=== PATIENT | male | born 1975 | race Two or more races ===

== ENCOUNTER 2023-12-19 11:56 | Inpatient (IN) | payer OTHER ==
[~2023-12-19] VITALS: Ht 170.2 cm; Wt 63.5 kg
[2023-12-19] MEDS ORDERED: FAMOtidine 10 MG/ML (4ML VIAL) IV STA (13:56)
[2023-12-19] MEDS ORDERED: THIAMINE HCL 100 MG/ML 2 ML VIAL IM STA (13:59)
[2023-12-19] MEDS ORDERED: 0.9 % SODIUM CHLORIDE 1,000 ML IV SCH (14:00)
[2023-12-19 14:44] LABS: HEMATOCRIT 30.2 % (39.0-48.0); HEMOGLOBIN 10.9 g/dL (13-16.00); MEAN CELL VOLUME 105.2 fL (80.0-100.00); MEAN CORPUSCULAR HGB CONC 36.1 g/dl (32.0-36.0); RED BLOOD COUNT 2.88 M/uL (4.00-6.00); RED CELL DISTRIBUTION WIDTH 15.2 % (11.5-14.5)
[2023-12-19 14:46] LABS: PLATELET COUNT 89 K/uL (150-450)
[2023-12-19 15:05] LABS: INR 2.86
[2023-12-19 15:14] LABS: ALBUMIN 1.9 gm/dL (3.4-5.0); CREATININE SERUM 0.81 mg/dL (0.70-1.30); GFR 102.59; TOTAL PROTEIN 6.8 gm/dL (6.4-8.2)
[2023-12-19 15:16] LABS: BILIRUBIN,UNCONJUGATED 11.46 mg/dL (0.0-0.6)
[2023-12-19 15:24] LABS: BILIRUBIN TOTAL 21.82 mg/dL (0.3-1.2); POTASSIUM 1.66 mEq/L (3.5-5.1)
[2023-12-19 15:27] LABS: PARTIAL THROMBOPLASTIN TIME 59.7 SECONDS (22.0-34.0); PROTHROMBIN TIME 27.8 SECONDS (9.0-11.5)
[2023-12-19] MEDS ORDERED: POTASSIUM CHLORIDE 8 MEQ TABLET PO STA (15:32)
[2023-12-19] MEDS ORDERED: POTASSIUM CHLORIDE IN 0.9%NACL 40 MEQ/1,000 ML PIGGYBAG IV STA (15:33)
[2023-12-19 15:34] LABS: BILIRUBIN,CONJUGATED 10.36 mg/dL (0.0-0.2)
[2023-12-19 17:22] LABS: PH,URINE 6.5 (5.0-8.0); URINE APPEARANCE Turbid; URINE BACTERIA 11.3 uL (0.0-1933); URINE BILIRRUBIN Large (NEGATIVE); URINE BLOOD Negative; URINE COLOR Dark Yellow; URINE EPITHELIAL CELLS 16.5 uL (0.0-38.8); URINE GLUCOSE Negative (NEGATIVE); URINE KETONE Negative (NEGATIVE); URINE LEUKOCYTE Small; URINE NITRATE Positive; URINE PROTEIN Trace (NEGATIVE); URINE RBC 17.1 uL (0.0-20.8); URINE WBC 2.4 uL (0.0-23.2)
[2023-12-19] MEDS ORDERED: CEFTRIAXONE SODIUM 2,000 MG in 0.9 % SODIUM CHLORIDE 100 ML IV SCH (17:37)
[2023-12-19] MEDS ORDERED: LACTULOSE 10 G/15 ML ML PO SCH (17:37)
[2023-12-19] MEDS ORDERED: FUROsemide 20 MG/2 ML VIAL IV SCH (17:38)
[2023-12-19] MEDS ORDERED: ONDANSETRON HCL 4 MG in 0.9 % SODIUM CHLORIDE 50 ML IV PRN (17:45)
[2023-12-19] MEDS ORDERED: PANTOPRAZOLE SODIUM 40 MG/VIAL VIAL IV ONE (17:45)
[2023-12-19] MEDS ORDERED: CHLORDIAZEPOXIDE HCL 25 MG CAPSULE PO SCH (17:55)
[2023-12-19] MEDS ORDERED: PHYTONADIONE 10 MG/ML AMPUL SUBCUTANEO ONE (18:00)
[2023-12-19] MEDS ORDERED: OCTREOTIDE ACETATE 0.05MG/ML (50MCG/ML) AMPUL IV ONE (18:00)
[2023-12-19] MEDS ORDERED: FUROsemide 20 MG/2 ML VIAL ONE (18:49)
[2023-12-19] MEDS ORDERED: CEFTRIAXONE SODIUM 2,000 MG VIAL ONE (18:50)
[2023-12-19] MEDS ORDERED: OCTREOTIDE ACETATE 0.05MG/ML (50MCG/ML) AMPUL ONE (18:50)
[2023-12-19] MEDS ORDERED: LACTULOSE 20 G/30 ML BLIST.PACK ONE (18:51)
[2023-12-19 19:20] LABS: MAGNESIUM 1.7 mg/dL (1.8-2.4); PHOSPHOROUS 3.1 mg/dL (2.5-4.9)
[2023-12-19] MEDS ORDERED: LORazepam 1 MG TABLET PO SCH (19:39)
[2023-12-19] MEDS ORDERED: IPRATROPIUM BROMIDE 0.5 MG/2.5 ML AMPUL.NEB IH SCH (20:03)
[2023-12-19] MEDS ORDERED: ALBUMIN HUMAN-25 0.25GM/ML (50ML) VIAL IV SCH (20:07)
[2023-12-19] MEDS ORDERED: MAGNESIUM SULFATE 10,000 MG/20 ML VIAL IV ONE (20:15)
[2023-12-19] MEDS ORDERED: OCTREOTIDE ACETATE 1,250 MCG in 0.9 % SODIUM CHLORIDE 250 ML IV SCH (20:15)
[2023-12-19] MEDS ORDERED: PANTOPRAZOLE SODIUM 80 MG in 0.9 % SODIUM CHLORIDE 100 ML IV SCH (20:15)
[2023-12-19] MEDS ORDERED: POTASSIUM BICARBONATE/CIT AC 25 MEQ TABLET.EFF PO ONE (20:15)
[2023-12-19 21:09] LABS: ABG PH 7.569 (7.35-7.45); ABG PO2 82.7 mmHg (80-100); BASE EXCESS 6.9 mmol/l; BICARBONATE 28.6 mmol/l (23-25); SaO2 97.8 %; Tco2 29.6 mmol/l
[2023-12-19 21:58] LABS: ob POSITIVE (NEGATIVE)
[2023-12-19 22:00] LABS: COCAINE NEGATIVE (NEGATIVE); METHADONE NEGATIVE (NEGATIVE); OPIATES NEGATIVE (NEGATIVE); THC ( Cannabinoids) POSITIVE (NEGATIVE)
[2023-12-19 22:02] LABS: allen test SATISFACTORY; o2 21 %; puncture site RADIAL RIGHT
[2023-12-20] MEDS ORDERED: IPRATROPIUM BROMIDE 0.5 MG/2.5 ML AMPUL.NEB IH ONE (00:16)
[2023-12-20] MEDS ORDERED: POTASSIUM CHLORIDE IN WATER 100 ML IV SCH (01:00)
[2023-12-20] MEDS ORDERED: THIAMINE HCL 100 MG/ML 2 ML VIAL IV SCH (09:00)
[2023-12-20] MEDS ORDERED: CHOLESTYRAMINE/ASPARTAME LIGHT 4 G/PKT PACKET PO SCH (09:00)
[2023-12-20] MEDS ORDERED: SPIRONOLACTONE 50 MG TABLET PO SCH (11:25)
[2023-12-20] MEDS ORDERED: PHYTONADIONE 10 MG/ML AMPUL IV ONE (11:30)
[2023-12-20] MEDS ORDERED: PHYTONADIONE 10 MG/ML AMPUL IM ONE (11:30)
[2023-12-20] MEDS ORDERED: MAGNESIUM SULFATE IN WATER 50 ML IV ONE (11:30)
[2023-12-20] MEDS ORDERED: POTASSIUM CHLORIDE IN WATER 40 MEQ/100 ML PIGGYBAG IV SCH (12:00)
[2023-12-20] MEDS ORDERED: LACTULOSE 20 G/30 ML BLIST.PACK PO SCH (13:00)
[2023-12-20] MEDS ORDERED: ALBUMIN HUMAN-25 0.25GM/ML (50ML) VIAL IV SCH (17:00)
[2023-12-21 07:24] LABS: MEAN CELL VOLUME 107.2 fL (80.0-100.00); MEAN CORPUSCULAR HGB CONC 37.1 g/dl (32.0-36.0); RED BLOOD COUNT 2.16 M/uL (4.00-6.00); RED CELL DISTRIBUTION WIDTH 15.2 % (11.5-14.5)
[2023-12-21 07:40] LABS: CALCIUM 7.8 mg/dL (8.5-10.1); CREATININE SERUM 0.75 mg/dL (0.70-1.30); GFR 112.12; HEMATOCRIT 23.1 % (39.0-48.0); MEAN CORPUSCULAR HEMOGLOBIN 39.8 pg (27.00-32.0)
[2023-12-21 07:41] LABS: HEMOGLOBIN 8.6 g/dL (13-16.00); PLATELET COUNT 62 K/uL (150-450)
[2023-12-21 08:25] LABS: POTASSIUM 2.45 mEq/L (3.5-5.1)
[2023-12-21] MEDS ORDERED: MAGNESIUM SULFATE IN WATER 4 GM/100 ML PIGGYBACK IV ONE (11:17)
[2023-12-21] MEDS ORDERED: MAGNESIUM SULFATE IN WATER 50 ML IV NR (11:25)
[2023-12-21] MEDS ORDERED: POTASSIUM CHLORIDE IN WATER 40 MEQ/100 ML PIGGYBAG IV SCH (12:00)
[2023-12-21] MEDS ORDERED: OCTREOTIDE ACETATE 1,250 MCG in 0.9 % SODIUM CHLORIDE 250 ML IV SCH (13:00)
[2023-12-21] MEDS ORDERED: SODIUM CL 0.9% 250 ML IV.SOLN ONE (17:26)
[2023-12-22 06:56] LABS: INR 2.85
[2023-12-22 07:03] LABS: PROTHROMBIN TIME 27.7 SECONDS (9.0-11.5)
[2023-12-22 07:11] LABS: ALBUMIN 1.8 gm/dL (3.4-5.0); CALCIUM 7.8 mg/dL (8.5-10.1); CREATININE SERUM 0.9 mg/dL (0.70-1.30); GFR 90.84; GLOBULINA 3.1 G/DL (2.4-3.5); MAGNESIUM 2.2 mg/dL (1.8-2.4); TOTAL PROTEIN 4.9 gm/dL (6.4-8.2)
[2023-12-22 08:07] LABS: BILIRUBIN TOTAL 22.77 mg/dL (0.3-1.2); POTASSIUM 2.7 mEq/L (3.5-5.1)
[2023-12-22] MEDS ORDERED: SODIUM CL 0.9% 250 ML IV.SOLN ONE (09:25)
[2023-12-22] MEDS ORDERED: PHYTONADIONE 10 MG/ML AMPUL IV SCH (10:01)
[2023-12-22] MEDS ORDERED: POTASSIUM CHLORIDE IN WATER 40 MEQ/100 ML PIGGYBAG IV SCH (12:00)
[2023-12-23 05:14] LABS: MEAN CELL VOLUME 110.1 fL (80.0-100.00); MEAN CORPUSCULAR HGB CONC 36.9 g/dl (32.0-36.0); RED CELL DISTRIBUTION WIDTH 14.8 % (11.5-14.5)
[2023-12-23 05:17] LABS: MEAN CORPUSCULAR HEMOGLOBIN 40.9 pg (27.00-32.0)
[2023-12-23 05:18] LABS: HEMATOCRIT 23.2 % (39.0-48.0)
[2023-12-23 05:19] LABS: PLATELET COUNT 60 K/uL (150-450)
[2023-12-23] MEDS ORDERED: PANTOPRAZOLE SODIUM 40 MG/VIAL VIAL IV SCH (09:00)
[2023-12-23 09:50] LABS: HEMOGLOBIN 8.6 g/dL (13-16.00)
[2023-12-24 18:10] LABS: HEMATOCRIT 24.6 % (39.0-48.0); HEMOGLOBIN 9.1 g/dL (13-16.00); MEAN CELL VOLUME 109.1 fL (80.0-100.00); MEAN CORPUSCULAR HEMOGLOBIN 40.4 pg (27.00-32.0); RED BLOOD COUNT 2.26 M/uL (4.00-6.00); RED CELL DISTRIBUTION WIDTH 15.7 % (11.5-14.5)
[2023-12-24 18:27] LABS: INR 3.22
[2023-12-24 18:36] LABS: ALBUMIN 1.9 gm/dL (3.4-5.0); CALCIUM 8.6 mg/dL (8.5-10.1); CREATININE SERUM 3.2 mg/dL (0.70-1.30); GFR 21.02; GLOBULINA 3.5 G/DL (2.4-3.5); POTASSIUM 3.86 mEq/L (3.5-5.1); TOTAL PROTEIN 5.4 gm/dL (6.4-8.2)
[2023-12-24 18:44] LABS: BILIRUBIN TOTAL 26.01 mg/dL (0.3-1.2)
[2023-12-24 18:49] LABS: PLATELET COUNT 57 K/uL (150-450)
[2023-12-24 21:31] LABS: BILI PERITONEAL FLUID 5.13 mg/dl; TP PERITONEAL FLUID 0.8 g/dl
[2023-12-25 09:08] LABS: INR 2.67
[2023-12-25 09:19] LABS: PROTHROMBIN TIME 26.1 SECONDS (9.0-11.5)
[2023-12-25 09:20] LABS: PARTIAL THROMBOPLASTIN TIME 64.3 SECONDS (22.0-34.0)
[2023-12-25] MEDS ORDERED: SODIUM CL 0.9% 250 ML IV.SOLN ONE ×2 (12:34→16:18)
[2023-12-26 06:35] LABS: MEAN CELL VOLUME 112.5 fL (80.0-100.00); MEAN CORPUSCULAR HGB CONC 37.1 g/dl (32.0-36.0); RED BLOOD COUNT 1.95 M/uL (4.00-6.00); RED CELL DISTRIBUTION WIDTH 16.2 % (11.5-14.5)
[2023-12-26 06:59] LABS: ALBUMIN 1.8 gm/dL (3.4-5.0); CALCIUM 8.5 mg/dL (8.5-10.1); GLOBULINA 3.2 G/DL (2.4-3.5); POTASSIUM 3.83 mEq/L (3.5-5.1)
[2023-12-26 07:20] LABS: HEMOGLOBIN 8.2 g/dL (13-16.00); PLATELET COUNT 48 K/uL (150-450)
[2023-12-26 07:55] LABS: BILIRUBIN TOTAL 26.58 mg/dL (0.3-1.2); GFR 11.92
[2023-12-26 07:56] LABS: CREATININE SERUM 5.23 mg/dL (0.70-1.30)
[2023-12-26] MEDS ORDERED: SPIRONOLACTONE 50 MG TABLET PO SCH (09:00)
[2023-12-26] MEDS ORDERED: FUROsemide 20 MG/2 ML VIAL IV SCH (14:00)
[2023-12-27 11:03] LABS: HEMATOCRIT 26.3 % (39.0-48.0); HEMOGLOBIN 9.7 g/dL (13-16.00); MEAN CELL VOLUME 110.3 fL (80.0-100.00); MEAN CORPUSCULAR HEMOGLOBIN 40.6 pg (27.00-32.0); MEAN CORPUSCULAR HGB CONC 36.8 g/dl (32.0-36.0); RED BLOOD COUNT 2.38 M/uL (4.00-6.00)
[2023-12-27 12:11] LABS: PLATELET COUNT 41 K/uL (150-450)
[2023-12-27] MEDS ORDERED: ALBUMIN HUMAN-25 0.25GM/ML (50ML) VIAL IV SCH (22:21)
[2023-12-27] MEDS ORDERED: MIDODRINE HCL 5 MG TABLET PO SCH (22:21)
[2023-12-28 02:04] LABS: ALBUMIN 1.8 gm/dL (3.4-5.0); CALCIUM 8.4 mg/dL (8.5-10.1); GLOBULINA 3.3 G/DL (2.4-3.5); POTASSIUM 3.7 mEq/L (3.5-5.1); TOTAL PROTEIN 5.1 gm/dL (6.4-8.2)
[2023-12-28 02:18] LABS: BILIRUBIN TOTAL 26.74 mg/dL (0.3-1.2)
[2023-12-28 02:19] LABS: CREATININE SERUM 6.73 mg/dL (0.70-1.30); GFR 8.91
[2023-12-28] MEDS ORDERED: MIDODRINE HCL PO SCH (13:00)
[2023-12-29] MEDS ORDERED: OCTREOTIDE ACETATE 5MCG/ML REDILUIDO IV SCH (13:26)
[2023-12-29] MEDS ORDERED: PANTOPRAZOLE SODIUM 40 MG/VIAL VIAL IV SCH (17:00)
[2023-12-30 11:36] LABS: MEAN CORPUSCULAR HGB CONC 36.9 g/dl (32.0-36.0); RED BLOOD COUNT 1.98 M/uL (4.00-6.00); RED CELL DISTRIBUTION WIDTH 17.8 % (11.5-14.5)
[2023-12-30 12:03] LABS: HEMATOCRIT 22.2 % (39.0-48.0); HEMOGLOBIN 8.2 g/dL (13-16.00); MEAN CORPUSCULAR HEMOGLOBIN 41.4 pg (27.00-32.0)
[2023-12-30 12:06] LABS: PLATELET COUNT 28 K/uL (150-450)
[2023-12-30 12:10] LABS: ALBUMIN 2.2 gm/dL (3.4-5.0); CALCIUM 8.6 mg/dL (8.5-10.1); GLOBULINA 2.8 G/DL (2.4-3.5); POTASSIUM 4.25 mEq/L (3.5-5.1)
[2023-12-30 12:24] LABS: CREATININE SERUM 7.5 mg/dL (0.70-1.30); GFR 7.86
[2023-12-30 12:25] LABS: BILIRUBIN TOTAL 28.58 mg/dL (0.3-1.2)
[2023-12-31] MEDS ORDERED: AMINO ACIDS 4.25 %/DEXTROSE 5% 1,000 ML PERIFERAL SCH (19:15)
[2023-12-31 21:07] LABS: ANION GAP 17 (10.0-20.0); CALCIUM 8.9 mg/dL (8.5-10.1); CARBON DIOXIDE 24 mEq/L (21-32); CHLORIDE 100 mmol/L (98-107); GLUCOSE FASTING 101 mg/dL (65-100); HDL 18 mg/dl (40-60); POTASSIUM 5.19 mEq/L (3.5-5.1); SODIUM 136 mmol/L (136-145); TRIGLYCERIDES 67 mg/dL (0-150); VLDL 13 (0-39)
[2023-12-31 21:13] LABS: BLOOD UREA NITROGEN 101 mg/dL (7-18); BUN CREA RATIO 12 (7.0-25.0); CHOL HDL RATIO 2.8 (0-5.0); CHOLESTEROL < 50 mg/dL (0-200); GFR 7.08; LDL 19 mg/dl (0-130); OSMOLALITY SERUM 304 MOSM/KG (275-295)
[2023-12-31 21:14] LABS: CREATININE SERUM 8.21 mg/dL (0.70-1.30)
== END 2024-01-01 13:18 | disposition expired | DRG 432 ==
LOC: ER 11:56 → ICU-2 20:24 → MEDI 20:24
PROVIDERS: General Practice; Internal Medicine; ADMIT Internal Medicine; ATTEND Internal Medicine
PROC: BW21ZZZ Computerized Tomography (CT Scan) of Abdomen and Pelvis (ICD-10-PCS; 2023-12-19)
PROC: 4A12X4Z Monitoring of Cardiac Electrical Activity, External Approach (ICD-10-PCS; 2023-12-21)
PROC: 0W9G3ZX Drainage of Peritoneal Cavity, Percutaneous Approach, Diagnostic (ICD-10-PCS; principal; 2023-12-24)
PROC: 02HV33Z Insertion of Infusion Device into Superior Vena Cava, Percutaneous Approach (ICD-10-PCS; 2023-12-24)
DX: K70.31 Alcoholic cirrhosis of liver with ascites (principal); K76.7 Hepatorenal syndrome; E87.1 Hypo-osmolality and hyponatremia; J90 Pleural effusion, not elsewhere classified; N39.0 Urinary tract infection, site not specified; K92.1 Melena; N17.9 Acute kidney failure, unspecified; G93.49 Other encephalopathy; K72.10 Chronic hepatic failure without coma; E87.6 Hypokalemia; F10.20 Alcohol dependence, uncomplicated; D69.6 Thrombocytopenia, unspecified; D64.9 Anemia, unspecified